=== PATIENT | male | born 1945 | race Caucasian/White ===

== ENCOUNTER 2016-12-01 18:42 | Inpatient (IN) | payer MEDICARE, BC, OTHER ==
[2016-12-01] MEDS ORDERED: NORMAL SALINE 1000 ML 1,000 ML IV ONE (18:57)
[2016-12-01] MEDS ORDERED: ONDANSETRON HCL INJ/PF 4 MG/2 ML SDV IV ONE (18:57)
--- NOTE | 2016-12-01 19:00 | ER Document Report ---
ED Medical Screen (RME) - General TRAVEL OUTSIDE OF THE [place]. IN LAST 30 DAYS: No <YEYO THOMPSON - Last Filed: 12/01/16 18:52> <YASMINE MENDOZA - Last Filed: 12/01/16 21:23> - General Chief Complaint: Abdominal Pain Stated Complaint: FLU LIKE SYMPTOMS Time Seen by Provider: 12/01/16 18:51 Notes: Patient is a 71 year old male presenting to the emergency department for abdominal pain, nausea, vomiting, and diarrhea. Patient states he just got back from [place] Sunday morning. Patient had some episodes of diarrhea and vomiting Sunday. Patient felt tired and had chills on Sunday. Patient states he felt somewhat better on Sunday and was able to play golf. Patient states his symptoms returned and have been persistent. Patient denies any hemaemesis, or bloody stools. Patient states he also has had dark urine. Patient denies any history of abdominal surgery but states he does have diverticulosis. Patient is a smoker and drinks EtOH. Patient's PCP is Dr. Abarca. (YEYO HTOMPSON) - Related Data Allergies/Adverse Reactions: No Known Allergies Allergy (Unverified 12/01/16 18:50) Past Medical History - Social History Cigarette use (# per day): Yes Chew tobacco use (# tins/day): No Frequency of alcohol use: Occasional Drug Abuse: None Renal/ Medical History: Denies: Hx Peritoneal Dialysis <YEYO THOMPSON - Last Filed: 12/01/16 18:52> Physical Exam <YEYO THOMPSON - Last Filed: 12/01/16 18:52> <YASMINE MENDOZA - Last Filed: 12/01/16 21:23> - Vital signs Vitals: Temp Pulse Resp BP Pulse Ox 98.6 F 88 20 138/65 H 98 12/01/16 18:50 12/01/16 18:50 12/01/16 18:50 12/01/16 18:50 12/01/16 18:50 - Notes Notes: GENERAL: Alert, interacts well. Mild distress. LUNGS: Clear to auscultation bilaterally, no wheezes, rales, or rhonchi. No respiratory distress. HEART: Regular rate and rhythm. No murmurs, gallops, or rubs. ABDOMEN: Soft, non-tender. Non-distended. Bowel sounds present in all 4 quadrants. (YEYO THOMPSON) Course - Laboratory Result Diagrams: 12/01/16 19:07 12/01/16 19:07 <YASMINE MENDOZA - Last Filed: 12/01/16 21:23> - Vital Signs Vital signs: Temp Pulse Resp BP Pulse Ox 98.6 F 88 20 138/65 H 98 12/01/16 18:50 12/01/16 18:50 12/01/16 18:50 12/01/16 18:50 12/01/16 18:50 - Laboratory Laboratory results interpreted by me: 12/01/16 12/01/16 12/01/16 19:07 19:07 19:50 WBC 13.7 H RDW 14.8 H Seg Neuts % (Manual) 79 H Band Neutrophils % 8 H Lymphocytes % (Manual) 1 L Abs Neuts (Manual) 11.9 H Abs Lymphs (Manual) 0.1 L Abs Monocytes (Manual) 1.6 H Sodium 136.3 L Carbon Dioxide 20 L Glucose 207 H Total Bilirubin 5.5 H Direct Bilirubin 4.3 H AST 208 H ALT 585 H Alkaline Phosphatase 138 H Urine Protein 30 H Urine Glucose (UA) 50 H Urine Blood SMALL H Urine Bilirubin SMALL H Urine Urobilinogen 4.0 H Scribe Documentation - Scribe Written by Scribe:: Marc Nichols 12/01/16 19:00 acting as scribe for :: Yamile <YEYO THOMPSON - Last Filed: 12/01/16 18:52>
[2016-12-01 19:30] LABS: HEMATOCRIT 44.9 % (37.9-51.0); HEMOGLOBIN 15.3 g/dL (13.5-17.0); MEAN CORPUSCULAR HGB CONC 34.1 g/dL (32.0-36.0); MEAN CORPUSCULAR VOLUME 88 fl (80-97); RED BLOOD COUNT 5.09 10^6/uL (4.35-5.55); RED CELL DISTRIBUTION WIDTH 14.8 % (11.5-14.0); WHITE BLOOD COUNT 13.7 10^3/uL (4.0-10.5)
[2016-12-01 19:55] LABS: BAND NEUTROPHILS % (MANUAL) 8 % (3-5); BASOPHILS % (MANUAL) 0 % (0-2); EOSINOPHILS % (MANUAL) 0 % (0-6); LYMPHOCYTES % (MANUAL) 1 % (13-45); TOTAL CELLS COUNTED 100
[2016-12-01 19:59] LABS: ALANINE AMINOTRANSFERASE 585 U/L (21-72); ALBUMIN 3.9 g/dL (3.5-5.0); ALKALINE PHOSPHATASE 138 U/L (38-126); ANION GAP 13 (5-19); ANISOCYTOSIS SLIGHT; ASPARTATE AMINO TRANSFERASE 208 U/L (17-59); BILIRUBIN,DIRECT 4.3 mg/dL (0.0-0.4); BILIRUBIN,TOTAL 5.5 mg/dL (0.2-1.3); BLOOD UREA NITROGEN 14 mg/dL (7-20); CALCIUM 9.2 mg/dL (8.4-10.2); CARBON DIOXIDE 20 mmol/L (22-30); CHLORIDE 103 mmol/L (98-107); CREATININE RESULT 0.82 mg/dL (0.52-1.25); GLUCOSE 207 mg/dL (75-110); POIKILOCYTOSIS SLIGHT; POTASSIUM 4.5 mmol/L (3.6-5.0); SODIUM 136.3 mmol/L (137-145); TOTAL PROTEIN 7.2 g/dL (6.3-8.2)
[2016-12-01 20:00] LABS: TOXIC GRANULATION SLIGHT
[2016-12-01 20:27] LABS: APPEARANCE,URINE CLEAR; BILIRUBIN,URINE SMALL (NEGATIVE); GLUCOSE, URINE 50 mg/dL (NEGATIVE); KETONES,URINE NEGATIVE (NEGATIVE); LEUKOCYTE ESTERASE,URINE NEGATIVE (NEGATIVE); NITRITE,URINE NEGATIVE (NEGATIVE); PROTEIN,URINE 30 mg/dL (NEGATIVE); URINE SPECIFIC GRAVITY 1.019
--- NOTE | 2016-12-01 20:33 | RADIOLOGY REPORT (SQ) ---
EXAM DESCRIPTION: CT ABD/PELVIS WITH IV ONLY COMPLETED DATE/TIME: 12/01/2016 8:14 pm REASON FOR STUDY: N/V/D, diffuse abd pain COMPARISON: None. TECHNIQUE: CT scan of the abdomen and pelvis performed using helical scanning technique with dynamic intravenous contrast injection. No oral contrast. Images reviewed with lung, soft tissue, and bone windows. Reconstructed coronal and sagittal MPR images reviewed. Delayed images for evaluation of the urinary system also acquired. All images stored on PACS. All CT scanners at this facility use dose modulation, iterative reconstruction, and/or weight based d osing when appropriate to reduce radiation dose to as low as reasonably achievable (ALARA). [facility]: Dose Right [facility]: CareDose [facility]: Dose Right [facility]: Teradose 4D [facility]: ComplyMD CONTRAST TYPE AND DOSE: contrast/concentration: Isovue 370.00 mg/ml; Total Contrast Delivered: 91.0 ml; Total Saline Delivered: 70.0 ml RENAL FUNCTION: BUN 14 creatinine 0.82. RADIATION DOSE: Up-to-date CT equipment and radiation dose reduction techniques were employed. CTDIv ol: 8.9 - 12.6 mGy. DLP: 1175 mGy-cm.. LIMITATIONS: None. FINDINGS: LOWER CHEST: No significant findings. No nodules or infiltrates. LIVER: Normal size. No masses. No dilated ducts. SPLEEN: Normal size. No focal lesions. PANCREAS: No masses. No significant calcifications. No adjacent inflammation or peripancreatic fluid collections. Pancreatic duct not dilated. GALLBLADDER: Indistinct faint density in the gallbladder. No inflammatory changes to suggest cholecys titis. ADRENAL GLANDS: No significant masses or asymmetry. RIGHT KIDNEY AND URETER: No solid masses. No significant calcifications. No hydronephrosis or hyd roureter. LEFT KIDNEY AND URETER: Subcentimeter cortical cyst. No solid masses. No significant calcification s. No hydronephrosis or hydroureter. AORTA AND VESSELS: No aneurysm. No dissection. Renal arteries, SMA, celiac without stenosis. RETROPERITONEUM: No retroperitoneal adenopathy, hemorrhage or masses. BOWEL AND PERITONEAL CAVITY: Scattered sigmoid diverticuli. Duodenal diverticulum. No masses or inf lammatory changes. No free fluid or peritoneal masses. APPENDIX: Normal. PELVIS: No mass. No free fluid. Normal bladder. ABDOMINAL WALL: No masses. No hernias. BONES: No significant or acute findings. OTHER: No other significant finding. IMPRESSION: 1. INDISTINCT FAINT DENSITY IN THE GALLBLADDER, POSSIBLY SMALL STONES OR SLUDGE. 2. MILD SIGMOID DIVERTICULOSIS. NO CT FINDINGS OF ACUTE DIVERTICULITIS. 3. NO OTHER SIGNIFICANT OR ACUTE FINDING IN THE ABDOMEN OR PELVIS ON CT SCAN WITH IV CONTRAST. TECHNICAL DOCUMENTATION: JOB ID: [id number] Quality ID # [id number]: Final reports with documentation of one or more dose reduction techniques (e.g., Au tomated exposure control, adjustment of the mA and/or kV according to patient size, use of iterative reconstruction technique) 2010 [employer]- All Rights Reserved
--- NOTE | 2016-12-01 21:12 | ER Document Report ---
ED GI/ - General Chief Complaint: Abdominal Pain Stated Complaint: FLU LIKE SYMPTOMS Time Seen by Provider: 12/01/16 18:51 Mode of Arrival: Ambulatory Information source: Patient Notes: 71-year-old male presents to ED for abdominal pain nausea vomiting and diarrhea. He states he got back from [place] on Sunday and had a episode of diarrhea nausea and vomiting Sunday and Sunday states he was somewhat better on Sunday. States he been out to eat on Sunday night had a fatty dinner and several alcohol drinks and morning he was feeling much worse. 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 He denies any bloody stools states he has had dark urine. Denies any history of any medical problems except for skin cancer. Has had his colonoscopy with no surgery. States he last colonoscopy the 20 did have diverticulosis but no diverticulitis. Says he smokes a pack a more day. TRAVEL OUTSIDE OF THE [place] IN LAST 30 DAYS: No - HPI Patient complains to provider of: Abdominal pain, Diarrhea, Vomiting Onset: Other - Sunday Timing/Duration: Intermittent Quality of pain: Cramping, Sharp Severity at maximum: Moderate Severity in ED: Mild Location: Other - Abdominal pain generalized Associated symptoms: Diarrhea, Loss of appetite, Nausea, Vomiting Exacerbated by: Denies Relieved by: Denies Similar symptoms previously: No Recently seen / treated by doctor: No - Related Data Allergies/Adverse Reactions: No Known Allergies Allergy (Unverified 12/01/16 18:50) Past Medical History - General Information source: Patient - Social History Smoking Status: Current Every Day Smoker Cigarette use (# per day): Yes - More than pack a day Chew tobacco use (# tins/day): No Smoking Education Provided: Yes - Less than 2 minutes Frequency of alcohol use: Heavy - 2-3 drinks a day. States he had much more than that over the previous week while in [place] Drug Abuse: None Occupation: Retired Lives with: Family Family History: Arthritis, CAD, CVA, DM, Hyperlipidemia, Hypertension, Malignancy. denies: COPD, Thyroid Disfunction Patient has suicidal ideation: No Patient has homicidal ideation: No - Past Medical History Cardiac Medical History: Reports: None Pulmonary Medical History: Reports: None EENT Medical History: Reports: None Neurological Medical History: Reports: None Endocrine Medical History: Reports: None Renal/ Medical History: Reports: None Malignancy Medical History: Reports Hx Skin Cancer GI Medical History: Reports: Hx Colonoscopy - Diverticulosis Musculoskeltal Medical History: Reports None Skin Medical History: Reports None Psychiatric Medical History: Reports: None Traumatic Medical History: Reports: None Infectious Medical History: Reports: None Surgical Hx: Negative Past Surgical History: Reports: None Review of Systems - Review of Systems Constitutional: Malaise, Recent illness. denies: Fever EENT: No symptoms reported Cardiovascular: No symptoms reported Respiratory: No symptoms reported Gastrointestinal: Abdominal pain, Diarrhea, Nausea, Vomiting. denies: Blood streaked bowels, Black stools Genitourinary: No symptoms reported Male Genitourinary: No symptoms reported Musculoskeletal: No symptoms reported Skin: No symptoms reported Hematologic/Lymphatic: No symptoms reported Neurological/Psychological: No symptoms reported -: Yes All other systems reviewed and negative Physical Exam - Vital signs Vitals: Temp Pulse Resp BP Pulse Ox 98.6 F 88 20 138/65 H 98 12/01/16 18:50 12/01/16 18:50 12/01/16 18:50 12/01/16 18:50 12/01/16 18:50 Interpretation: Normal - General General appearance: Appears well, Alert - HEENT Head: Normocephalic, Atraumatic Eyes: Normal Pupils: PERRL - Respiratory Respiratory status: No respiratory distress Chest status: Nontender Breath sounds: Normal Chest palpation: Normal - Cardiovascular Rhythm: Regular Heart sounds: Normal auscultation Murmur: No - Abdominal Inspection: Normal Distension: Distended Bowel sounds: Normal Tenderness: Tender, Gleason's sign. No: Guarding, Rebound Organomegaly: No organomegaly - Back Back: Normal, Nontender - Extremities General upper extremity: Normal inspection, Nontender, Normal color, Normal ROM , Normal temperature General lower extremity: Normal inspection, Nontender, Normal color, Normal ROM , Normal temperature, Normal weight bearing. No: Betsy's sign - Neurological Neuro grossly intact: Yes Cognition: Normal Orientation: AAOx4 Emilia Coma Scale Eye Opening: Spontaneous [place] Coma Scale Verbal: Oriented [place] Coma Scale Motor: Obeys Commands [place] Coma Scale Total: 15 Speech: Normal Motor strength normal: LUE, RUE, LLE, RLE Sensory: Normal - Psychological Associated symptoms: Normal affect, Normal mood - Skin Skin Temperature: Warm Skin Moisture: Dry Skin Color: Normal, Jaundiced - Mild Course - Re-evaluation Re-evalutation: 12/01/16 23:41 Consulted Kathy for gallstones elevated liver enzymes elevated WBC nausea since Sunday. Symptoms relieved with Zofran and IV fluids. He stated that the patient needed to be admitted to surgery, Dr. Gilbert consulted he stated to admit the patient with IV fluids and have consult for medical management. Dr. Clemente notified of consult, he stated he will not accept this patient for consult. - Vital Signs Vital signs: Temp Pulse Resp BP Pulse Ox 98.4 F 56 L 18 120/62 98 12/02/16 08:12 12/02/16 08:12 12/02/16 08:12 12/02/16 08:12 12/02/16 08:12 - Laboratory Result Diagrams: 12/02/16 05:10 12/02/16 05:10 Laboratory results interpreted by me: 12/01/16 12/01/16 12/01/16 19:07 19:07 19:50 WBC 13.7 H RDW 14.8 H Seg Neuts % (Manual) 79 H Band Neutrophils % 8 H Lymphocytes % (Manual) 1 L Abs Neuts (Manual) 11.9 H Abs Lymphs (Manual) 0.1 L Abs Monocytes (Manual) 1.6 H Sodium 136.3 L Carbon Dioxide 20 L Glucose 207 H Total Bilirubin 5.5 H Direct Bilirubin 4.3 H AST 208 H ALT 585 H Alkaline Phosphatase 138 H Urine Protein 30 H Urine Glucose (UA) 50 H Urine Blood SMALL H Urine Bilirubin SMALL H Urine Urobilinogen 4.0 H - Diagnostic Test Radiology reviewed: Image reviewed, Reports reviewed - Consults LISA Time consulted: 23:40 Reason for consultation: 12/01/16 23:40 GALLSTONES, ELEVATED LFT, ELEVATED WBC, DAILY ETOH Consulted provider: will see as inpatient Discharge - Discharge Clinical Impression: Elevated LFTs Gallstone Qualifiers: Cholecystitis presence: without cholecystitis Biliary obstruction: without biliary obstruction Qualified Code(s): K80.20 - Calculus of gallbladder without cholecystitis without obstruction Elevated WBC count Qualifiers: Leukocytosis type: unspecified Qualified Code(s): D72.829 - Elevated white blood cell count, unspecified Admitting Provider: Surgicalist [facility] Unit Admitted: Medical Floor
[2016-12-01] MEDS ORDERED: NORMAL SALINE 1000 ML 1,000 ML IV PRN (21:13)
--- NOTE | 2016-12-01 22:50 | RADIOLOGY REPORT (SQ) ---
EXAM DESCRIPTION: U/S ABDOMEN LIMITED W/O DOP COMPLETED DATE/TIME: 12/01/2016 10:15 pm REASON FOR STUDY: elevated lft, elevated wbc COMPARISON: CT dated 12/01/2016. TECHNIQUE: Dynamic and static grayscale images acquired of the right upper quadrant and recorded on PACS. Additional selected color Doppler and spectral images recorded. LIMITATIONS: Study limited due to acoustical interference from fat or from air in the bowel. FINDINGS: PANCREAS: Obscured. LIVER: No masses. Echotexture normal. LIVER VASCULATURE: Normal directional flow of the main portal vein and hepatic veins. GALLBLADDER: Multiple small gallstones. No pericholecystic fluid. No wall thickening. ULTRASOUND-DETECTED RODRIGUEZ'S SIGN: Negative. INTRAHEPATIC DUCTS AND COMMON DUCT: CBD and intrahepatic ducts normal caliber. No filling defects. INFERIOR VENA CAVA: Normal flow. AORTA: Obscured. RIGHT KIDNEY: Normal size. Normal echogenicity. No solid or suspicious masses. No hydronephrosis. No calcifications. PERITONEAL CAVITY AND RIGHT PLEURAL SPACE: No ascites or effusions. OTHER: No other significant finding. IMPRESSION: MULTIPLE SMALL GALLSTONES. NO OTHER SIGNIFICANT FINDINGS. TECHNICAL DOCUMENTATION: JOB ID: [id number] [employer]- All Rights Reserved
[2016-12-01] MEDS ORDERED: PIPERACILLIN/TAZOBACTAM 3.375 GM VIAL IV ONE (23:29)
[2016-12-02] MEDS ORDERED: ONDANSETRON HCL INJ/PF 4 MG/2 ML SDV IV PRN ×2 (02:47→14:22)
[2016-12-02] MEDS ORDERED: PIPERACILLIN/TAZOBACTAM 3.375 GM VIAL IV PRN (02:47)
[2016-12-02] MEDS ORDERED: DEXTROSE 50%-WATER 25 GM/50 ML DISP.SYRIN IV PRN ×2 (02:55)
[2016-12-02] MEDS ORDERED: DEXTROSE 40% GEL 15 GM TUBE PO PRN ×2 (02:55)
[2016-12-02] MEDS ORDERED: GLUCAGON,HUMAN RECOMB 1 MG INJ SUBCUT PRN (02:55)
[2016-12-02] MEDS ORDERED: PIPERACILLIN SODIUM/TAZOBACTAM 3.375 GM in NORMAL SALINE 100 ML IV SCH (03:00)
[2016-12-02 05:34] LABS: ABSOLUTE LYMPHOCYTES (AUTO) 0.8 10^3/uL (0.5-4.7); ABSOLUTE MONOCYTES (AUTO) 1.2 10^3/uL (0.1-1.4); ABSOLUTE NEUT (AUTO) 7.8 10^3/uL (1.7-8.2); BASOPHILS % (AUTO) 0.1 % (0-2); EOSINOPHILS % (AUTO) 0.4 % (0-6); HEMATOCRIT 40.3 % (37.9-51.0); HEMOGLOBIN 13.7 g/dL (13.5-17.0); HGB HCT DIFFERENCE 0.8; LYMPHOCYTES % (AUTO) 8.4 % (13-45); MEAN CORPUSCULAR HEMOGLOBIN 30.2 pg (27.0-33.4); MEAN CORPUSCULAR VOLUME 89 fl (80-97); MONOCYTES % (AUTO) 12.2 % (3-13); RED BLOOD COUNT 4.55 10^6/uL (4.35-5.55); RED CELL DISTRIBUTION WIDTH 14.5 % (11.5-14.0); SEGMENTED NEUTROPHILS % (AUTO) 78.9 % (42-78); WHITE BLOOD COUNT 9.9 10^3/uL (4.0-10.5)
[2016-12-02] MEDS ORDERED: PIPERACILLIN/TAZOBACTAM 3.375 GM VIAL IV ONE (05:45)
[2016-12-02 05:47] LABS: ALANINE AMINOTRANSFERASE 433 U/L (21-72); ALBUMIN 3.3 g/dL (3.5-5.0); ALKALINE PHOSPHATASE 123 U/L (38-126); ANION GAP 10 (5-19); ASPARTATE AMINO TRANSFERASE 141 U/L (17-59); BILIRUBIN,TOTAL 5.1 mg/dL (0.2-1.3); BLOOD UREA NITROGEN 9 mg/dL (7-20); CALCIUM 8.6 mg/dL (8.4-10.2); CARBON DIOXIDE 22 mmol/L (22-30); CHLORIDE 107 mmol/L (98-107); CREATININE RESULT 0.77 mg/dL (0.52-1.25); GLUCOSE 107 mg/dL (75-110); SODIUM 139.3 mmol/L (137-145); TOTAL PROTEIN 6.3 g/dL (6.3-8.2)
[2016-12-02] MEDS: PIPERACILLIN SODIUM/TAZOBACTAM 3.375 GM in NORMAL SALINE 100 ML IV SCH ×4 (05:59→23:21)
--- NOTE | 2016-12-02 07:09 | HISTORY AND PHYSICAL E ---
History and Physical NAME: DONATO MISHRA : 1945 AGE: 71Y ADMITTED: 12/02/2016 ROOM: 422 CHIEF COMPLAINT: Abdominal pains. HISTORY OF PRESENT ILLNESS: This is a 71-year-old male who started to have diarrhea about 6 days ago in [place]. On his way back to the , that afternoon, he started to vomit. The next day, complained of diffuse abdominal pains. About Sunday or 3 days ago, played golf, but [place] and ate fried food and developed severe abdominal pains. Two days ago, he claims is still having pains and was quite restless. His bowel movement then more solid and his pains were more above the umbilicus or the epigastric areas. Denies any nausea or vomiting at that time, but felt very weak and it seems like his pains are radiating to the back. On Sunday or the day of admission, really felt bad and pains got more severe. His urine was noted to be more highly colored, which he actually noted since Sunday or 4 days ago. He then went to the emergency room where an ultrasound of the gallbladder showed gallstones. His white count is elevated to 13.7 and his liver functions are elevated with a total bilirubin of 5.5 and direct bilirubin 4.3 and AST of 208 and ALT 585, alkaline phos of 138, but the lipase last night was normal at 82.5. However, this morning at 5 a.m., repeat blood work showed that lipase went up to 694. However, his liver functions are slightly lower this morning. PAST HISTORY: Unremarkable. He said he never had any hospitalization and this is the first time for him. He said his blood pressure has been normal and he never had any tooth cavity. FAMILY HISTORY: Father at age 52, likely due to lead poisoning. Mother at age 85 because of a stroke. ALLERGIES: No known. SOCIAL HISTORY: Patient drinks about 2-3 drinks a day, but not every day, and will have about 5-6 drinks average a week. He smokes more than a pack a day. Denies recreational drug use. 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 REVIEW OF SYSTEMS: CONSTITUTIONAL: Has generalized weakness. Denies any fever. EENT: No symptoms reported. CARDIOVASCULAR: No chest pains. RESPIRATORY: No shortness of breath. GASTROINTESTINAL: As in HPI. Abdominal pains with a history of diarrhea with nausea and vomiting. Denies any blood in the stool or black stools. GENITOURINARY: No dysuria. Male genitourinary no symptoms reported. MUSCULOSKELETAL: Denies any joint pains. SKIN: No rash. HEMATOLOGIC: No easy bruisability. NEUROLOGIC: Patient alert, awake, and denies any confusion. All other systems are reviewed and are negative. PHYSICAL EXAMINATION: VITAL SIGNS: Temp of 98.6, pulse of 88, respiratory rate 20, blood pressure 138/65, pulse ox is 98 on room air. GENERAL APPEARANCE: Patient is alert and well oriented, in no acute distress. HEENT: Eyes are normal, nonicteric sclerae. Head: Normocephalic. RESPIRATORY: No respiratory distress. Breath sounds are normal. No wheezing. CARDIOVASCULAR: Regular rate and rhythm. No murmurs. ABDOMEN: Soft. Mild tenderness in the right upper quadrant. EXTREMITIES: No edema. IMPRESSION: 1. Cholelithiasis. 2. Gallstone pancreatitis. 3. Elevated LFTs. PLAN: 1. Continue with IV antibiotic. 2. Keep n.p.o. 3. Continue with hydration. 4. Likely need laparoscopic cholecystectomy when his liver enzymes and pancreatic enzyme and lipase start to come down. Patient also noted that his urine is less highly colored compared to a couple of days ago. DICTATING PHYSICIAN: DARY GONZALEZ M.D. [id number] PHY#: [id number] ID: [id number] JOB#: [id number] ACCT: [id number] cc:DARY GONZALEZ M.D. >
[2016-12-02] MEDS ORDERED: NICOTINE 21 MG/24 HR PATCH.TD24 TD SCH (10:00)
[2016-12-02] MEDS ORDERED: NORMAL SALINE 500 ML IV ONE (10:15)
[2016-12-02] MEDS ORDERED: LORAZEPAM INJ 2 MG/1 ML VIAL IV PRN (11:02)
[2016-12-02] MEDS ORDERED: NICOTINE 21 MG/24 HR PATCH.TD24 TD PRN (11:03)
[2016-12-02] MEDS ORDERED: LANSOPRAZOLE 15 MG TAB.RAP.DR PO ONE (12:00)
[2016-12-02] MEDS ORDERED: EPHEDRINE SULFATE INJ 50 MG/1 ML AMPULE ONE (12:02)
[2016-12-02] MEDS ORDERED: PROPOFOL INJ 200 MG/20 ML VIAL IV ONE (12:02)
[2016-12-02] MEDS ORDERED: HYDROMORPHONE HCL INJ/PF 2 MG/ML AMPULE ONE ×2 (12:02)
[2016-12-02] MEDS ORDERED: MIDAZOLAM 2 MG/2 ML INJ ONE (12:02)
[2016-12-02] MEDS ORDERED: FENTANYL CITRATE INJ/PF 250 MCG/5 ML AMPULE ONE (12:02)
[2016-12-02] MEDS: NORMAL SALINE 1000 ML 1,000 ML IV PRN ×2 (12:39→18:05)
[2016-12-02] MEDS ORDERED: BUPIVACAINE HCL 0.25 % INJ/PF (2.5 MG/1 ML) 30 ML VIAL ONE (13:20)
[2016-12-02] MEDS ORDERED: NEOSTIGMINE METHYLSULFATE 10 MG/10 ML VIAL ONE (13:45)
[2016-12-02] MEDS ORDERED: DEXAMETHASONE SOD PHOSPHATE INJ 4 MG/1 ML VIAL ONE (13:45)
[2016-12-02] MEDS ORDERED: ONDANSETRON HCL INJ/PF 4 MG/2 ML SDV ONE (13:45)
[2016-12-02] MEDS ORDERED: GLYCOPYRROLATE INJ 0.4 MG/2 ML VIAL ONE (13:45)
[2016-12-02] MEDS ORDERED: ROCURONIUM BROMIDE INJ 50 MG/5 ML VIAL IV ONE (13:45)
[2016-12-02] MEDS ORDERED: BUPIVACAINE HCL 0.25 % INJ/PF (2.5 MG/1 ML) 30 ML VIAL INJ ONE ×2 (14:06)
[2016-12-02] MEDS ORDERED: MEPERIDINE HCL/PF INJ 25 MG/1 ML DISP.SYRIN IV PRN (14:22)
[2016-12-02] MEDS ORDERED: DIPHENHYDRAMINE HCL 50 MG/ML VIAL IV PRN (14:22)
[2016-12-02] MEDS ORDERED: FENTANYL CITRATE INJ/PF 100 MCG/2 ML AMPUL IV PRN ×3 (14:22)
--- NOTE | 2016-12-02 15:02 | RADIOLOGY REPORT (SQ) ---
EXAM DESCRIPTION: CHOLANGIOGRAM OPERATIVE COMPLETED DATE/TIME: 12/02/2016 2:51 pm REASON FOR STUDY: CHOLANGIOGRAM IN OR R17 UNSPECIFIED JAUNDICE COMPARISON: None. FLUOROSCOPY TIME: 0.1 MINUTES. TECHNIQUE: 8 images were obtained from an intraoperative cholangiogram. LIMITATIONS: None. FINDINGS: There is opacification of the bile ducts, cystic duct remnants and second portion of the d uodenum with possible filling defect at the ampulla of Vater. No additional filling defect or signif icant extravasation. IMPRESSION: INTRAOPERATIVE CHOLANGIOGRAM. POSSIBLE RETAINED STONE AT THE AMPULLA OF VATER. COMMENT: Quality ID [id number]: Final reports for procedures using fluoroscopy that document radiation exp osure indices, or exposure time and number of fluorographic images (if radiation exposure indices are not available) TECHNICAL DOCUMENTATION: JOB ID: [id number] [employer]- All Rights Reserved
--- NOTE | 2016-12-02 15:05 | Operative Report ---
Operative Report DATE OF SURGERY: 12/02/16 PREOPERATIVE DIAGNOSIS: 1. Acute cholecystitis with cholelithiasis. 2. Elevated liver function studies. 3. Pancreatitis POSTOPERATIVE DIAGNOSIS: Same with choledocholithiasis and gallstone pancreatitis OPERATION: 1. Laparoscopic cholecystectomy. 2. Intraoperative cholangiography. 3. Interpretation of intraoperative cholangiography. SURGEON: FAUSTO HARMON ANESTHESIA: GA TISSUE REMOVED OR ALTERED: 1 gallbladder with stones COMPLICATIONS: None ESTIMATED BLOOD LOSS: Scant INTRAOPERATIVE FINDINGS: See below PROCEDURE: The patient was taken to the preop holding area the main operating room where general anesthesia was induced. Arms were abducted abdomen exposed, prepped draped sterile fashion and instrumentation set up for laparoscopic cholecystectomy Surgical plan and surgical timeout were conducted Skin was anesthetized with quarter percent Marcaine. A supraumbilical vertical incision was made with a knife and Veress needle inserted peritoneal cavity pneumoperitoneum was established. The Veress needle was removed, 5 mm ports inserted a 5 mm viewing scope was inserted. Under direct visualization 3 additional ports were placed one in the subxiphoid and 2 in the subcostal positions. Findings are significant for acute cholecystitis. Photos are taken. The gallbladder was aspirated of approximately 100 cc of bile. Graspers were then placed on the fundus and infundibulum and the gallbladder was elevated off of the undersurface of the liver. The neck of the gallbladder its junction with the cystic duct was dissected out. The anatomy here was quite classic. The cystic artery had several branches and these were delineated such that the anterior and posterior components were both able to be clipped twice proximally once distally divided with scissors. Therefore now the triangle of Calot was opened sufficiently to confirm critical anatomy; photographs were taken. We clipped the cystic duct on the gallbladder side, made a small opening in the cystic duct and brought onto the field of disposable percutaneous cholangiogram catheter. This was threaded through the anterior abdominal wall after luci made in the skin with 11 blade. The catheter was then threaded into the cystic duct stump and secured into position with a clip. We level the patient not removed laparoscopic instruments, and completed a series of cholangiograms. This was performed with approximately 10 cc of full- strength contrast. Injection was performed and tolerated by the patient well. Fluoroscopic imaging real-time showed excellent opacification of the intra-and extrahepatic biliary tree. There was no evidence of bile leak. There was only a trace of contrast moving into the duodenum. There were filling defects in the distal common bile duct consistent with retained choledocholithiasis. We level the patient now restored laparoscopic instruments, removed the clip and catheter from the cystic duct, then secured the cystic duct proximally with 3 clips and divided the cystic duct. The gallbladder was then removed from the liver bed using hook cautery dissection and brought to the patient to the supraumbilical port site incision We checked for bleeding there was none. Clip placement was excellent. All residual bile was irrigated at the peritoneal cavity after leveling the patient out. We felt the operation was complete. Sponge and counts were correct. All ports removed under direct visualization, pneumoperitoneum evacuated wounds closed with 0 Vicryl 3-0 Vicryl benzoin and Steri-Strips. The patient tolerated procedure well, extubated and taken recovery in stable condition.
--- NOTE | 2016-12-02 17:11 | PDOC CONSULTATION ---
Consultation Consult Date: 12/02/16 Attending physician:: FAUSTO HARMON Consult reason:: Alcohol use History of Present Illness Admission Date/PCP: 12/02/16 02:54 ZAINAB MCKINLEY MD History of Present Illness: DONATO MISHRA is a 71 year old male who recently returned from [place] from a golf trip and began having right upper quadrant pain. He reports one episode of diarrhea that morning and subsequent vomiting. He reports that he then ate chicken fried steak and developed abdominal pain. He denied any additional diarrhea or vomiting. He has noted some achy right upper quadrant pain and began having dark urine as well as fatigue and reported fever chills. Upon presentation to the emergency department patient is found to have cholecystitis with suspicion for choledocholithiasis. Patient is a primary patient of the surgical service and we are consulted for patient's alcohol usage. Past Medical History Cardiac Medical History: Reports: None Pulmonary Medical History: Reports: None EENT Medical History: Reports: None Neurological Medical History: Reports: None Endocrine Medical History: Reports: None Renal/ Medical History: Reports: None Malignancy Medical History: Reports: Skin Cancer Musculoskeltal Medical History: Reports: None Skin Medical History: Reports: None Psychiatric Medical History: Reports: None Traumatic Medical History: Reports: None Infectious Medical History: Reports: None Past Surgical History Past Surgical History: Reports: None Social History Lives with: Family Smoking Status: Current Every Day Smoker Cigarettes Packs Per Day: 1 Frequency of Alcohol Use: Heavy Amount of Alcoholic Beverages Per Day: 2+ drink/day Hx Recreational Drug Use: No Drugs: None Hx Prescription Drug Abuse: No - Advance Directive Resuscitation Status: Full Code Surrogate healthcare decision maker:: , Lisa Family History Family History: CAD, CVA, DM, Hyperlipidemia, Hypertension, Malignancy. denies : COPD, Thyroid Disfunction Family History: Significant family history for brother who at 62 of melanoma, sister at 73 of breast cancer, mother 83 CVA, father 52 of lead poisoning and alcohol abuse Parental Family History Reviewed: Yes Children Family History Reviewed: Yes Sibling(s) Family History Reviewed.: Yes Medication/Allergy Home Medications: Omeprazole Magnesium [Prilosec Otc] 20 mg PO DAILY 12/02/16 Allergies/Adverse Reactions: No Known Allergies Allergy (Unverified 12/01/16 18:50) Review of Systems Constitutional: PRESENT: as per HPI, chills, fatigue, fever(s). ABSENT: headache(s), weight gain, weight loss Eyes: ABSENT: visual disturbances Ears: ABSENT: hearing changes Cardiovascular: ABSENT: chest pain, dyspnea on exertion, edema, orthropnea, palpitations Respiratory: ABSENT: cough, hemoptysis, other Gastrointestinal: PRESENT: abdominal pain, nausea, vomiting. ABSENT: constipation, diarrhea, hematemesis, hematochezia, melena Genitourinary: ABSENT: dysuria, hematuria Musculoskeletal: ABSENT: joint swelling Integumentary: ABSENT: rash, wounds Neurological: ABSENT: abnormal gait, abnormal speech, confusion, dizziness, focal weakness, syncope Psychiatric: ABSENT: anxiety, depression, homidical ideation, suicidal ideation Endocrine: ABSENT: cold intolerance, heat intolerance, polydipsia, polyuria Hematologic/Lymphatic: ABSENT: easy bleeding, easy bruising Physical Exam Vital Signs: Temp Pulse Resp BP Pulse Ox 97.4 F 53 L 18 149/79 H 97 12/02/16 16:45 12/02/16 16:45 12/02/16 16:45 12/02/16 16:45 12/02/16 16:45 Intake & Output 12/01/16 12/02/16 12/03/16 06:59 06:59 06:59 Intake Total 494 1400 Output Total 520 Balance 494 880 Weight 84.7 kg General appearance: PRESENT: no acute distress, well-developed, well-nourished Head exam: PRESENT: atraumatic, normocephalic Eye exam: PRESENT: conjunctiva pink, EOMI, PERRLA. ABSENT: scleral icterus Ear exam: PRESENT: normal external ear exam Mouth exam: PRESENT: moist, tongue midline Neck exam: ABSENT: JVD, lymphadenopathy, thyromegaly, tracheal deviation Respiratory exam: PRESENT: clear to auscultation sunday, prolonged expiratory phas , symmetrical, unlabored. ABSENT: accessory muscle use, rales, retraction, rhonchi, wheezes Cardiovascular exam: PRESENT: RRR, +S1, +S2. ABSENT: diastolic murmur, rubs, systolic murmur Pulses: PRESENT: normal dorsalis pedis pul Vascular exam: PRESENT: normal capillary refill GI/Abdominal exam: PRESENT: hypoactive bowel sounds, Gleason's sign, soft, tenderness - RUQ. ABSENT: distended, firm, guarding, mass, organolmegaly, rebound, rigid Rectal exam: PRESENT: deferred Extremities exam: PRESENT: full ROM. ABSENT: calf tenderness, clubbing, pedal edema Neurological exam: PRESENT: alert, awake, oriented to person, oriented to place , oriented to time, oriented to situation, CN II-XII grossly intact. ABSENT: motor sensory deficit Psychiatric exam: PRESENT: appropriate affect, normal mood. ABSENT: homicidal ideation, suicidal ideation Skin exam: PRESENT: dry, intact, warm. ABSENT: cyanosis, rash Results Laboratory Results: 12/02/16 05:10 12/02/16 05:10 12/02/16 12/02/16 12/02/16 05:10 05:10 12:26 WBC 9.9 RBC 4.55 Hgb 13.7 Hct 40.3 MCV 89 MCH 30.2 MCHC 34.0 RDW 14.5 H Plt Count 183 Seg Neutrophils % 78.9 H Lymphocytes % 8.4 L Monocytes % 12.2 Eosinophils % 0.4 Basophils % 0.1 Absolute Neutrophils 7.8 Absolute Lymphocytes 0.8 Absolute Monocytes 1.2 Absolute Eosinophils 0.0 Absolute Basophils 0.0 Sodium 139.3 Potassium 4.0 Chloride 107 Carbon Dioxide 22 Anion Gap 10 BUN 9 Creatinine 0.77 Est GFR ( Amer) > 60 Est GFR (Non-Af Amer) > 60 Glucose 107 Calcium 8.6 Total Bilirubin 5.1 H AST 141 H ALT 433 H Alkaline Phosphatase 123 Total Protein 6.3 Albumin 3.3 L Lipase 694.0 H Blood Type B POSITIVE Antibody Screen NEGATIVE Impressions: Abdomen/Pelvis CT 12/01/16 18:57 IMPRESSION: 1. INDISTINCT FAINT DENSITY IN THE GALLBLADDER, POSSIBLY SMALL STONES OR SLUDGE. 2. MILD SIGMOID DIVERTICULOSIS. NO CT FINDINGS OF ACUTE DIVERTICULITIS. 3. NO OTHER SIGNIFICANT OR ACUTE FINDING IN THE ABDOMEN OR PELVIS ON CT SCAN WITH IV CONTRAST. Abdomen Ultrasound 12/01/16 20:52 IMPRESSION: MULTIPLE SMALL GALLSTONES. NO OTHER SIGNIFICANT FINDINGS. Cholangiogram 12/02/16 00:00 IMPRESSION: INTRAOPERATIVE CHOLANGIOGRAM. POSSIBLE RETAINED STONE AT THE [place] OF [place]. Assessment & Plan - Diagnosis (1) Choledocholithiasis with acute cholecystitis Is this a current diagnosis for this admission?: YesPlan: Agree with plan to proceed with surgery. Also agree with use of Zosyn. Defer all management decisions to primary surgical team regarding this diagnosis. (2) Sepsis Is this a current diagnosis for this admission?: YesPlan: Secondary to #1 (3) Alcohol abuse Is this a current diagnosis for this admission?: YesPlan: Have advised cessation. Initiate Ativan as needed, and banana bag daily (4) Tobacco abuse Is this a current diagnosis for this admission?: YesPlan: Advised cessation and offered nicotine patch (5) RBBB Is this a current diagnosis for this admission?: YesPlan: Patient reports having had prior stress tests that were negative and outpatient cardiac evaluation - Time Time Spent: 50 to 70 Minutes Medications reviewed and adjusted accordingly: Yes - Plan Summary Plan Summary: We appreciate the opportunity to help our surgical colleagues with this case. At this time we agree with their excellent management will sign off and leave further judgments to this team. At this time we will sign off and are available for reconsultation. Total time spent with patient including patient education, physical examination , discussion with primary team, and formulation of plan was 60 minutes.
[2016-12-02] MEDS: HYDROMORPHONE HCL INJ/PF 2 MG/ML AMPULE IV PRN ×2 (17:21→21:23)
[2016-12-02] MEDS: NORMAL SALINE 1000 ML 1,000 ML with POTASSIUM CHLORIDE 20 MEQ, MAGNESIUM SULFATE 8 MEQ,... IV SCH ×5 (17:39)
[2016-12-03] MEDS: PIPERACILLIN SODIUM/TAZOBACTAM 3.375 GM in NORMAL SALINE 100 ML IV SCH ×4 (05:23→23:32)
[2016-12-03 06:21] LABS: ALANINE AMINOTRANSFERASE 332 U/L (21-72); ALKALINE PHOSPHATASE 131 U/L (38-126); ASPARTATE AMINO TRANSFERASE 96 U/L (17-59); BILIRUBIN,DIRECT 3.9 mg/dL (0.0-0.4); BILIRUBIN,TOTAL 5.3 mg/dL (0.2-1.3); TOTAL PROTEIN 6.1 g/dL (6.3-8.2)
[2016-12-03] MEDS: ACETAMINOPHEN WITH CODEINE #3 TABLET PO PRN ×2 (07:53→13:27)
[2016-12-03] MEDS: LANSOPRAZOLE 15 MG TAB.RAP.DR PO SCH (09:16)
[2016-12-03] MEDS ORDERED: LANSOPRAZOLE 15 MG TAB.RAP.DR PO SCH (10:00)
[2016-12-03] MEDS ORDERED: DEXTROSE 50%-WATER 25 GM/50 ML DISP.SYRIN IV PRN ×2 (10:49)
[2016-12-03] MEDS ORDERED: DEXTROSE 40% GEL 15 GM TUBE PO PRN ×2 (10:49)
[2016-12-03] MEDS ORDERED: GLUCAGON,HUMAN RECOMB 1 MG INJ SUBCUT PRN (10:49)
--- NOTE | 2016-12-03 10:49 | PDOC PROGRESS REPORT ---
Subjective Progress Note for:: 12/03/16 Subjective:: Patient is postoperative day 1 status post laparoscopic cholecystectomy for acute cholecystitis with cholelithiasis, with intraoperative cholangiography demonstrating distal common bile duct obstruction. Overnight the patient did reasonably well has had some pain and received narcotics for that. He tolerated some clear liquids. He is getting up and walking. Physical Exam Vital Signs: Temp Pulse Resp BP Pulse Ox 98.5 F 64 20 132/67 H 94 12/03/16 07:18 12/03/16 07:18 12/03/16 07:18 12/03/16 07:18 12/03/16 07:18 Intake & Output 12/02/16 12/03/16 12/04/16 06:59 06:59 06:59 Intake Total 494 4190 Output Total 1845 Balance 494 2345 Weight 84.7 kg 84.8 kg General appearance: PRESENT: no acute distress GI/Abdominal exam: PRESENT: other - Operative incisions covered satisfactorily no bleeding. Abdomen is a little bit distended. Results Laboratory Results: 12/02/16 05:10 12/02/16 05:10 12/02/16 12/03/16 12:26 04:57 Total Bilirubin 5.3 H AST 96 H ALT 332 H Alkaline Phosphatase 131 H Total Protein 6.1 L Albumin 3.0 L Blood Type B POSITIVE Antibody Screen NEGATIVE Impressions: Abdomen/Pelvis CT 12/01/16 18:57 IMPRESSION: 1. INDISTINCT FAINT DENSITY IN THE GALLBLADDER, POSSIBLY SMALL STONES OR SLUDGE. 2. MILD SIGMOID DIVERTICULOSIS. NO CT FINDINGS OF ACUTE DIVERTICULITIS. 3. NO OTHER SIGNIFICANT OR ACUTE FINDING IN THE ABDOMEN OR PELVIS ON CT SCAN WITH IV CONTRAST. Abdomen Ultrasound 12/01/16 20:52 IMPRESSION: MULTIPLE SMALL GALLSTONES. NO OTHER SIGNIFICANT FINDINGS. Cholangiogram 12/02/16 00:00 IMPRESSION: INTRAOPERATIVE CHOLANGIOGRAM. POSSIBLE RETAINED STONE AT THE [place] OF [place]. Assessment & Plan - Diagnosis (1) Choledocholithiasis with acute cholecystitis Is this a current diagnosis for this admission?: YesPlan: Now 1 day status post laparoscopic cholecystectomy with intraoperative cholangiography for acute cholecystitis with cholelithiasis; documented distal common bile duct stones with persisting elevated total bilirubin. Plan: 1. Patient needs ERCP. Resources not available today; anticipate Dr. Trinidad assistance tomorrow for ERCP, sphincterotomy and sludge versus stone extraction from the distal common bile duct. This was explained in detail to the patient and his . I do not think I could readily get the patient transferred from [facility] to tertiary care facility today, Sunday, as the patient is not in shock without evidence of sepsis I explained this to the patient and his as well. We will keep him on IV antibiotics and on clear liquids, n.p.o. after midnight
[2016-12-03] MEDS: NORMAL SALINE 1000 ML 1,000 ML IV PRN (12:01)
--- NOTE | 2016-12-03 13:49 | EKG REPORT ---
SEVERITY:- ABNORMAL ECG - SINUS RHYTHM RIGHT BUNDLE BRANCH BLOCK : Confirmed by: Gisele Verdin MD 03-Dec-2016 13:48:49
[2016-12-03] MEDS: NORMAL SALINE 1000 ML 1,000 ML with POTASSIUM CHLORIDE 20 MEQ, MAGNESIUM SULFATE 8 MEQ,... IV SCH ×5 (18:26)
[2016-12-04] MEDS: PIPERACILLIN SODIUM/TAZOBACTAM 3.375 GM in NORMAL SALINE 100 ML IV SCH ×4 (05:07→23:23)
[2016-12-04 05:28] LABS: ALANINE AMINOTRANSFERASE 226 U/L (21-72); ALBUMIN 2.9 g/dL (3.5-5.0); ALKALINE PHOSPHATASE 125 U/L (38-126); ASPARTATE AMINO TRANSFERASE 58 U/L (17-59); BILIRUBIN,TOTAL 5.6 mg/dL (0.2-1.3); LIPASE 36.1 U/L (23-300)
[2016-12-04] MEDS ORDERED: BISACODYL 5 MG TABEC PO ONE (09:00)
--- NOTE | 2016-12-04 09:28 | PDOC PROGRESS REPORT ---
Subjective Progress Note for:: 12/04/16 Subjective:: Patient has not had a bowel movement; otherwise feels okay. Physical Exam Vital Signs: Temp Pulse Resp BP Pulse Ox 98.3 F 67 20 142/70 H 95 12/04/16 07:48 12/04/16 07:48 12/04/16 07:48 12/04/16 07:48 12/04/16 07:48 Intake & Output 12/03/16 12/04/16 12/05/16 06:59 06:59 06:59 Intake Total 4190 4021 Output Total 1845 2180 Balance 2345 1841 Weight 84.8 kg General appearance: PRESENT: no acute distress GI/Abdominal exam: PRESENT: other - Abdomen slightly distended. Results Laboratory Results: 12/02/16 05:10 12/02/16 05:10 12/04/16 04:42 Total Bilirubin 5.6 H AST 58 ALT 226 H Alkaline Phosphatase 125 Total Protein 6.0 L Albumin 2.9 L Lipase 36.1 Impressions: Abdomen/Pelvis CT 12/01/16 18:57 IMPRESSION: 1. INDISTINCT FAINT DENSITY IN THE GALLBLADDER, POSSIBLY SMALL STONES OR SLUDGE. 2. MILD SIGMOID DIVERTICULOSIS. NO CT FINDINGS OF ACUTE DIVERTICULITIS. 3. NO OTHER SIGNIFICANT OR ACUTE FINDING IN THE ABDOMEN OR PELVIS ON CT SCAN WITH IV CONTRAST. Abdomen Ultrasound 12/01/16 20:52 IMPRESSION: MULTIPLE SMALL GALLSTONES. NO OTHER SIGNIFICANT FINDINGS. Cholangiogram 12/02/16 00:00 IMPRESSION: INTRAOPERATIVE CHOLANGIOGRAM. POSSIBLE RETAINED STONE AT THE [place] OF [place]. Assessment & Plan - Diagnosis (1) Choledocholithiasis with acute cholecystitis Is this a current diagnosis for this admission?: YesPlan: Patient is 2 days status post laparoscopic cholecystectomy for acute cholecystitis with cholelithiasis with intraoperative cholangiography showing distal common duct obstruction. Patient's total bilirubin remains elevated at 5.6 Plan: 1. Keep n.p.o. IV fluids and intravenous antibiotics 2. I spoke with Dr. Deep Trinidad who will see patient in consultation, and anticipate ERCP, stone extraction and possible stent placement.
[2016-12-04 10:22] LABS: PROTHROMBIN TIME 13.1 SEC (11.4-15.4)
[2016-12-04] MEDS: NORMAL SALINE 1000 ML 1,000 ML IV PRN (13:24)
[2016-12-04] MEDS ORDERED: NALOXONE HCL INJ/PF 0.4 MG/1 ML SDV ONE (17:37)
[2016-12-04] MEDS ORDERED: EPINEPHRINE INJ 1 MG/10 ML DISP.SYRIN ONE (17:38)
[2016-12-04] MEDS ORDERED: FLUMAZENIL INJ 0.5 MG/5 ML VIAL IV ONE (17:38)
[2016-12-04] MEDS ORDERED: FENTANYL CITRATE INJ/PF 100 MCG/2 ML AMPUL ONE (17:38)
[2016-12-04] MEDS ORDERED: GLUCAGON,HUMAN RECOMB 1 MG INJ ONE (17:39)
[2016-12-04] MEDS: LANSOPRAZOLE 15 MG TAB.RAP.DR PO SCH (17:42)
[2016-12-04] MEDS: MIDAZOLAM 2 MG/2 ML INJ ONE ×4 (18:32→18:56)
--- NOTE | 2016-12-04 19:20 | PDOC CONSULTATION ---
Consultation Consult Date: 12/04/16 History of Present Illness Admission Date/PCP: 12/04/16 08:00 ZAINAB MCKINLEY MD History of Present Illness: This is a 71-year-old patient was admitted a few days ago with abdominal pain, jaundice, and gallstones. He had been having recurrent abdominal pain for about a week but this got worse 2 days before admission. There was associated chills. He also noted darkening of his urine about 5 days ago. On admission his bilirubin was 5 with elevated transaminases and alkaline phosphatase. Lipase was initially normal but the day after admission it was slightly high at 694. He had a cholecystectomy on 12/02/2016 which showed poor drainage of contrast from the common bile duct and filling defects suggestive of choledocholithiasis. He has no history of liver disease. His bilirubin remained at 5.5 with a direct of 4. Lipase was normal today. He does drink a couple of days a week Past Medical History Cardiac Medical History: Reports: None Pulmonary Medical History: Reports: None EENT Medical History: Reports: None Neurological Medical History: Reports: None Denies: Seizures Endocrine Medical History: Reports: None Renal/ Medical History: Reports: None Malignancy Medical History: Reports: Skin Cancer Musculoskeltal Medical History: Reports: None Skin Medical History: Reports: None Psychiatric Medical History: Reports: None Traumatic Medical History: Reports: None Infectious Medical History: Reports: None Past Surgical History Past Surgical History: Reports: None Social History Lives with: Family Smoking Status: Current Every Day Smoker Cigarettes Packs Per Day: 1 Frequency of Alcohol Use: Heavy Hx Recreational Drug Use: No Drugs: None Hx Prescription Drug Abuse: No - Advance Directive Resuscitation Status: Full Code Family History Family History: CAD, CVA, DM, Hyperlipidemia, Hypertension, Malignancy. denies : COPD, Thyroid Disfunction Parental Family History Reviewed: No Children Family History Reviewed: NA Sibling(s) Family History Reviewed.: NA Medication/Allergy Home Medications: Omeprazole Magnesium [Prilosec Otc] 20 mg PO DAILY 12/02/16 Allergies/Adverse Reactions: No Known Allergies Allergy (Unverified 12/01/16 18:50) Review of Systems All systems: reviewed and no additional remarkable complaints except as stated Physical Exam Vital Signs: Temp Pulse Resp BP Pulse Ox 98.7 F 85 22 H 128/72 H 92 12/04/16 17:53 12/04/16 19:05 12/04/16 19:05 12/04/16 19:05 12/04/16 19:05 Intake & Output 12/03/16 12/04/16 12/05/16 06:59 06:59 06:59 Output Total 350 Balance -350 Exam: General: Patient is alert and looks well. HEENT: There is no pallor but he is jaundiced. PERRLA. Oropharynx normal Respiratory: No chest deformity. No respiratory distress. Chest wall palpitation was unremarkable. Breath sounds were normal Cardiovascular: Heart sounds 1 and 2 normal with no murmurs. Abdominal: Slightly distended but he states this is normal for him. Soft and nontender. Liver and spleen not palpable. No ascites demonstrated. Bowel sounds active. Rectal examination was deferred. Extremities: No edema Neurological: Alert and oriented x4. Grossly nonfocal. Normal speech Skin: No significant rash Psychological: Normal affect Results Impressions: Abdomen/Pelvis CT 12/01/16 18:57 IMPRESSION: 1. INDISTINCT FAINT DENSITY IN THE GALLBLADDER, POSSIBLY SMALL STONES OR SLUDGE. 2. MILD SIGMOID DIVERTICULOSIS. NO CT FINDINGS OF ACUTE DIVERTICULITIS. 3. NO OTHER SIGNIFICANT OR ACUTE FINDING IN THE ABDOMEN OR PELVIS ON CT SCAN WITH IV CONTRAST. Abdomen Ultrasound 12/01/16 20:52 IMPRESSION: MULTIPLE SMALL GALLSTONES. NO OTHER SIGNIFICANT FINDINGS. Cholangiogram 12/02/16 00:00 IMPRESSION: INTRAOPERATIVE CHOLANGIOGRAM. POSSIBLE RETAINED STONE AT THE [place]ULL[place] OF [place]. Assessment & Plan - Diagnosis (1) Abnormal findings on imaging of biliary tract Is this a current diagnosis for this admission?: YesPlan: His intraoperative cholangiogram does suggest choledocholithiasis and he was jaundiced pre-operatively and remains so postoperatively. The need for an ERCP including the risk and benefit was explained to the patient and he is in agreement. (2) Elevated LFTs Is this a current diagnosis for this admission?: Yes (3) Gallstone Qualifiers: Cholecystitis presence: without cholecystitis Biliary obstruction: without biliary obstruction Qualified Code(s): K80.20 - Calculus of gallbladder without cholecystitis without obstruction Is this a current diagnosis for this admission?: Yes
--- NOTE | 2016-12-04 19:24 | Operative Report ---
Operative Report DATE OF SURGERY: 12/04/16 Operative Report: Pre-op diagnosis: Jaundice and gallstones Post-op diagnosis: Proximal esophageal stricture Surgery: Attempted ERCP Medications: Versed 5mg Fentanyl 100mcg IV push Tissue removed: None Procedure: After informed consent obtained from patient, the throat was sprayed with Hurricane and conscious sedation was achieved. The ERCP endoscope was then inserted into the oropharynx and attempts was made to pass into the esophagus. This was difficult both in the prone and left lateral position. The side-viewing endoscope was then switched to the regular EGD endoscope. Patient appeared to have narrowing at the upper esophageal sphincter with possible Zenker's diverticulum. I was not able to pass the EGD scope and the procedure was then terminated. It was also difficult keeping the patient sedated Plan: He will undergo a barium swallow and consider repeating the ERCP in the operating room OPERATION: .
[2016-12-04] MEDS: NORMAL SALINE 1000 ML 1,000 ML with POTASSIUM CHLORIDE 20 MEQ, MAGNESIUM SULFATE 8 MEQ,... IV SCH ×5 (20:04)
[2016-12-04] MEDS: HYDROMORPHONE HCL INJ/PF 2 MG/ML AMPULE IV PRN (23:30)
[2016-12-05] MEDS: PIPERACILLIN SODIUM/TAZOBACTAM 3.375 GM in NORMAL SALINE 100 ML IV SCH ×4 (05:15→23:15)
[2016-12-05] MEDS: NORMAL SALINE 1000 ML 1,000 ML IV PRN ×2 (06:47→17:20)
[2016-12-05] MEDS: LANSOPRAZOLE 15 MG TAB.RAP.DR PO SCH (11:25)
--- NOTE | 2016-12-05 12:21 | RADIOLOGY REPORT (SQ) ---
EXAM DESCRIPTION: BARIUM SWALLOW ESOPHAGUS COMPLETED DATE/TIME: 12/05/2016 10:03 am REASON FOR STUDY: Stricture upper esophageal sphincter. r/o Zenker's R17 UNSPECIFIED JAUNDICE COMPARISON: None. TECHNIQUE: Under fluoroscopic guidance, patient ingested effervescent granules followed by thick and thin barium. Fluoroscopic spot images and routine radiographic images acquired and stored on PACS. 12 MM BARIUM TABLET GIVEN: Yes, the patient swallowed a 12 mm barium tablet which passed easily throu gh the esophagus and into the stomach without delay. LIMITATIONS: None. FLUOROSCOPY TIME: FLUORO TIME: 2.16 minutes 11 images saved to PACS. FINDINGS: NEUROMUSCULAR COORDINATION OF SWALLOW: Normal. No aspiration. ESOPHAGEAL MOTILITY: Normal peristalsis. No esophageal spasm. ESOPHAGEAL MUCOSA: Normal mucosa without masses or ulceration. There is a tiny Zenker's diverticulum present along with moderate cricopharyngeus hypertrophy. GASTRO-ESOPHAGEAL JUNCTION: There is a small hiatal hernia present. Moderate gastroesophageal reflux was demonstrated, with barium refluxing to the mid esophagus. NON-GI TRACT STRUCTURES: No significant finding. OTHER: Note is made of a small duodenal diverticulum. IMPRESSION: Tiny Zenker's diverticulum with moderate cricopharyngeus hypertrophy. Small hiatal janie ia with moderate gastroesophageal reflux. Otherwise unremarkable study. COMMENT: None Quality ID [id number]: Final reports for procedures using fluoroscopy that document radiation exposure cassie jeremy, or exposure time and number of fluorographic images (if radiation exposure indices are not avail able) TECHNICAL DOCUMENTATION: JOB ID: [id number] [employer]- All Rights Reserved
[2016-12-05] MEDS ORDERED: FENTANYL CITRATE INJ/PF 100 MCG/2 ML AMPUL IV PRN ×3 (18:35)
[2016-12-05] MEDS ORDERED: MEPERIDINE HCL/PF INJ 25 MG/1 ML DISP.SYRIN IV PRN (18:35)
[2016-12-05] MEDS ORDERED: DIPHENHYDRAMINE HCL 50 MG/ML VIAL IV PRN (18:35)
[2016-12-05] MEDS: NORMAL SALINE 1000 ML 1,000 ML with POTASSIUM CHLORIDE 20 MEQ, MAGNESIUM SULFATE 8 MEQ,... IV SCH ×5 (19:36)
--- NOTE | 2016-12-05 19:37 | Operative Report ---
Operative Report DATE OF SURGERY: 12/05/16 Operative Report: Pre-op diagnosis: History of jaundice, gallstones and incomplete ERCP on 2016 Post-op diagnosis: Multiple small common bile duct stones Surgery: ERCP with sphincterotomy and balloon stone extraction Medications: As per anesthesia Tissue removed: None Procedure: After informed consent obtained from patient, the throat was sprayed with Hurricane and conscious sedation was achieved. The ERCP endoscope was then inserted into the esophagus blindly and advanced into the stomach. The duodenum was entered and the ampulla was identified. Using the triple-lumen sphincterotomy catheter the common bile duct was freely cannulated. A cholangiogram was obtained which showed possible filling defect in the distal common bile duct. The common bile duct and intrahepatic ducts did not appear dilated. A good sized sphincterotomy was then performed using the endocut mode. The catheter was removed over the guidewire before a 9-12 mm balloon catheter was inserted. The balloon was inflated to 12 mm in the proximal common bile duct and pulled down the duct. Four small brown stones were extracted. The duct was swept one more time. A balloon occlusion cholangiogram was normal. The pancreatic duct was intentionally not cannulated. Patient tolerated procedure well. Findings Common bile duct: Multiple small brown stones Intrahepatic ducts: Normal Pancreatic duct: Not cannulated Plan: Follow liver function tests OPERATION: .
--- NOTE | 2016-12-05 21:27 | RADIOLOGY REPORT (SQ) ---
EXAM DESCRIPTION: ENDO CATH/BILIARY DUCT COMPLETED DATE/TIME: 12/05/2016 9:01 pm REASON FOR STUDY: ERCP R17 UNSPECIFIED JAUNDICE COMPARISON: None. FLUOROSCOPY TIME: 2.4 minutes 9 images saved to PACS. TECHNIQUE: Intra-operative images acquired during surgical procedure to evaluate progress. NUMBER OF IMAGES: 9 images LIMITATIONS: None. FINDINGS: Fluoroscopic images were obtained during performance of an ERCP. IMPRESSION: IMAGE(S) OBTAINED DURING PROCEDURE. COMMENT: Quality ID [id number]: Final reports for procedures using fluoroscopy that document radiation exp osure indices, or exposure time and number of fluorographic images (if radiation exposure indices are not available) Please consult full operative report of the attending physician for description of the procedure. TECHNICAL DOCUMENTATION: JOB ID: [id number] [employer]- All Rights Reserved
[2016-12-06] MEDS: NORMAL SALINE 1000 ML 1,000 ML IV PRN (03:43)
[2016-12-06 04:56] LABS: ABSOLUTE EOSINOPHILS # (AUTO) 0.1 10^3/uL (0.0-0.6); ABSOLUTE LYMPHOCYTES (AUTO) 1.1 10^3/uL (0.5-4.7); ABSOLUTE MONOCYTES (AUTO) 1.2 10^3/uL (0.1-1.4); ABSOLUTE NEUT (AUTO) 6.1 10^3/uL (1.7-8.2); BASOPHILS % (AUTO) 0.3 % (0-2); EOSINOPHILS % (AUTO) 1.1 % (0-6); HEMATOCRIT 35.7 % (37.9-51.0); HEMOGLOBIN 12.2 g/dL (13.5-17.0); HGB HCT DIFFERENCE 0.9; MEAN CORPUSCULAR HEMOGLOBIN 30.1 pg (27.0-33.4); MEAN CORPUSCULAR HGB CONC 34.2 g/dL (32.0-36.0); MEAN CORPUSCULAR VOLUME 88 fl (80-97); MONOCYTES % (AUTO) 14.1 % (3-13); RED BLOOD COUNT 4.06 10^6/uL (4.35-5.55); RED CELL DISTRIBUTION WIDTH 14.9 % (11.5-14.0); SEGMENTED NEUTROPHILS % (AUTO) 71.5 % (42-78); WHITE BLOOD COUNT 8.5 10^3/uL (4.0-10.5)
[2016-12-06] MEDS: PIPERACILLIN SODIUM/TAZOBACTAM 3.375 GM in NORMAL SALINE 100 ML IV SCH (05:13)
[2016-12-06 05:22] LABS: ALANINE AMINOTRANSFERASE 119 U/L (21-72); ALBUMIN 2.5 g/dL (3.5-5.0); ALKALINE PHOSPHATASE 97 U/L (38-126); ASPARTATE AMINO TRANSFERASE 43 U/L (17-59); BILIRUBIN,DIRECT 2.1 mg/dL (0.0-0.4); BILIRUBIN,TOTAL 3.1 mg/dL (0.2-1.3); TOTAL PROTEIN 5.3 g/dL (6.3-8.2)
[2016-12-06] MEDS: LANSOPRAZOLE 15 MG TAB.RAP.DR PO SCH (09:19)
[2016-12-06 11:23] VITALS: BP 139/73
--- NOTE | 2016-12-06 13:06 | PDOC PROGRESS REPORT ---
Subjective Progress Note for:: 12/06/16 Subjective:: comfortable after ERCP yesterday and hungry Physical Exam Vital Signs: Temp Pulse Resp BP Pulse Ox 97.7 F 56 L 19 139/73 H 99 12/06/16 11:03 12/06/16 11:03 12/06/16 11:03 12/06/16 11:03 12/06/16 11:03 Intake & Output 12/05/16 12/06/16 12/07/16 06:59 06:59 06:59 Intake Total 400 2127 Output Total 1200 1400 Balance -800 727 Weight 90.1 kg Respiratory exam: PRESENT: clear to auscultation sunday Cardiovascular exam: PRESENT: RRR GI/Abdominal exam: PRESENT: normal bowel sounds, soft Results Laboratory Results: 12/06/16 04:14 12/06/16 12/06/16 04:14 04:14 WBC 8.5 RBC 4.06 L Hgb 12.2 L Hct 35.7 L MCV 88 MCH 30.1 MCHC 34.2 RDW 14.9 H Plt Count 233 Seg Neutrophils % 71.5 Lymphocytes % 13.0 Monocytes % 14.1 H Eosinophils % 1.1 Basophils % 0.3 Absolute Neutrophils 6.1 Absolute Lymphocytes 1.1 Absolute Monocytes 1.2 Absolute Eosinophils 0.1 Absolute Basophils 0.0 Total Bilirubin 3.1 H AST 43 ALT 119 H Alkaline Phosphatase 97 Total Protein 5.3 L Albumin 2.5 L Impressions: Abdomen/Pelvis CT 12/01/16 18:57 IMPRESSION: 1. INDISTINCT FAINT DENSITY IN THE GALLBLADDER, POSSIBLY SMALL STONES OR SLUDGE. 2. MILD SIGMOID DIVERTICULOSIS. NO CT FINDINGS OF ACUTE DIVERTICULITIS. 3. NO OTHER SIGNIFICANT OR ACUTE FINDING IN THE ABDOMEN OR PELVIS ON CT SCAN WITH IV CONTRAST. Abdomen Ultrasound 12/01/16 20:52 IMPRESSION: MULTIPLE SMALL GALLSTONES. NO OTHER SIGNIFICANT FINDINGS. Cholangiogram 12/02/16 00:00 IMPRESSION: INTRAOPERATIVE CHOLANGIOGRAM. POSSIBLE RETAINED STONE AT THE AMPULLA OF VATER. Catheter Placement 12/05/16 00:00 IMPRESSION: IMAGE(S) OBTAINED DURING PROCEDURE. Esophagus X-Ray 12/05/16 07:00 IMPRESSION: Tiny Zenker's diverticulum with moderate cricopharyngeus hypertrophy. Small hiatal hernia with moderate gastroesophageal reflux. Otherwise unremarkable study. Assessment & Plan - Diagnosis (1) Choledocholithiasis with acute cholecystitis Is this a current diagnosis for this admission?: Yes - Plan Summary Plan Summary: A/ POD#4 after laparoscopic cholecystectomy POD # 1 and 2 after ERCP ERCP successful for CBD clearance Total Bilirubin improved today (3.1) compared to yesterday's (5.6) P.E. unremarkable P/ Discharge home today f/u with surgery clinic within in 1 week Liver profile on the day of clinic appointment F/U with disability services coordinator in 1-2 weeks regular diet activities as tolerated shower or bath allowed Augmentin 875 mg po BID x 7 days
--- NOTE | 2016-12-06 13:39 | DISCHARGE SUMMARY E ---
Discharge Summary NAME: DONATO MISHRA : 1945 AGE: 71Y ADMITTED: 12/04/2016 DISCHARGED: 12/06/2016 FINAL DIAGNOSES: 1. Choledocholithiasis with acute cholecystitis. 2. Jaundice. 3. History of alcohol abuse. PROCEDURE: On 12/02, the patient underwent laparoscopic cholecystectomy with intraoperative cholangiogram. On 12/04, the patient underwent ERCP. On 12/05, the patient underwent ERCP. COMPLICATIONS: None. HOSPITAL COURSE: A 71-year-old male who presented to the emergency room with right upper quadrant pain, found to have jaundice and elevated liver profile together with cholelithiasis, acute cholecystitis, and choledocholithiasis. The patient underwent laparoscopic cholecystectomy on 12/[address] Hernández. The procedure was well tolerated. The patient underwent a first ERCP on 12/04, which was unsuccessful because it was done under IV sedation and the patient was not 'cooperative' during the procedure. The patient underwent the second ERCP on 12/05 during which clearance for the common bile duct was performed successfully. The patient's bilirubin initially decreased. On the day of discharge, the patient had no complaints. His vital signs were stable. His blood work was within normal limits with total bilirubin down to 3.1 from 5.6 the day before. His white pressure count was normal. his LFT's were improving. His physical exam was unremarkable. Abdomen was soft. The patient was able to tolerate p.o. well. The patient was discharged home on 12/06/2016. He was given a followup appointment in surgery clinic within a week. He was given a followup appointment with the cloth dye range operator in 1-2 weeks. He was then started on a regular diet to follow activities as tolerated. He can shower and bathe immediately. He was given Augmentin 575 mg p.o. b.i.d. for 7 days. He was instructed to have a liver profile drawn on the day of the surgery clinic. DICTATING PHYSICIAN: ALYSSA CHEW M.D. [id number] PHY#: [id number] ID: [id number] JOB#: [id number] ACCT: [id number] cc:Napoleon BAXTER PA > MTDD
== END 2016-12-06 15:55 | disposition home or self-care (01) | DRG 413 ==
LOC: ER 18:42 → UNDOADMOB 23:54 → INTOOBSV 23:54 → EH 23:54 → 4W 12-02 02:00 → EH 12-02 02:00 → 4W 12-02 02:54 → OBSVTOIN 12-04 08:00 → 4N 12-05 15:00
PROVIDERS: ADMIT Surgery; ATTEND Surgery
PROC: BF001ZZ Plain Radiography of Bile Ducts using Low Osmolar Contrast (ICD-10-PCS; 2016-12-02)
PROC: 0FT44ZZ Resection of Gallbladder, Percutaneous Endoscopic Approach (ICD-10-PCS; principal; 2016-12-02 13:00)
PROC: 0FJB4ZZ Inspection of Hepatobiliary Duct, Percutaneous Endoscopic Approach (ICD-10-PCS; 2016-12-04)
PROC: 0F798ZZ Dilation of Common Bile Duct, Via Natural or Artificial Opening Endoscopic (ICD-10-PCS; 2016-12-05)
DX: K80.42 Calculus of bile duct with acute cholecystitis without obstruction (principal); F10.10 Alcohol abuse, uncomplicated; F17.210 Nicotine dependence, cigarettes, uncomplicated; K57.30 Diverticulosis of large intestine without perforation or abscess without bleeding; K22.2 Esophageal obstruction; I45.10 Unspecified right bundle-branch block; Z53.8 Procedure and treatment not carried out for other reasons; Z85.828 Personal history of other malignant neoplasm of skin; Z88.8 Allergy status to other drugs, medicaments and biological substances; Z82.49 Family history of ischemic heart disease and other diseases of the circulatory system; Z82.3 Family history of stroke; Z83.3 Family history of diabetes mellitus; Z80.3 Family history of malignant neoplasm of breast; Z80.8 Family history of malignant neoplasm of other organs or systems
CPT/HCPCS: 36415; 43262; 43264; 740; 74177; 74220; 74300; 74328; 76705; 790; 80048; 80053; 80074; 80076; 81001; 83690; 85025; 85610; 86850; 86900; 86901; 87040; 88304; 93005; 93010; 96361; 96374; 99285; G0378; J0171; J1100; J1170; J1610; J2250; J2310; J2405; J2543; J2704; J3010; J3411; J3475; J3480; J3490; J7030; J7040; Q9967